=== PATIENT | male | born 1965 | race Two or more races ===

== ENCOUNTER 2017-05-17 14:33 | Emergency (ER) | payer MEDICAID ==
--- NOTE | 2017-05-17 16:00 | ED Physician Chart ---
ED Chief Complaint/HPI - Patient Information Date Seen:: 05/17/17 Time Seen:: 15:45 Chief Complaint:: bleeding left eye History of Present Illness:: Patient awoke this morning with bleeding lateral to the cornea of the left eye. Patient denies trauma. Allergies:: Allergies Allergy/AdvReac Type Severity Reaction Status Date / Time MDX No Known Allergies - Nka Allergy Verified 05/17/17 15:49 [No Known Allergies - Nka] Vitals:: Vital Signs - 8 hr 05/17/17 15:35 Temp 96 F HR 83 RR 16 BP 115/81 O2 Sat % 97 Historian:: Patient Review:: Nurse's Note Reviewed ED Review of Systems - Review of Systems General/Constitutional: No fever, No chills Skin: No skin lesions Head: No headache Eyes: Other (see history and physical) ENT: No earache, No nasal drainage, No sore throat Neck: No neck pain, No swelling Cardio Vascular: No chest pain, No palpitations Pulmonary: No SOB GI: No nausea, No vomiting, No diarrhea G/U: No dysuria Musculoskeletal: No bone or joint pain, No back pain, No muscle pain Psychiatric: No prior psych history Hematopoietic: No bruising Allergic/Immuno: No urticaria Neurological: No syncope, No focal symptoms, No weakness ED Past Medical History - Past Medical History Past Medical History: HTN, Thyroid disorder, Other Family History: HTN Social History: Non Smoker, No Alcohol Surgical History: Cholecystectomy, other (possible cholecystectomy: Patient doesn't remember; he has surgery near his liver; bilateral renal calculi) Medication: Reviewed ED Assessment - Assessment General Assessment: The patient he has a benign condition and no treatment is indicated; he was told the blood will absorb. ED Septic Shock - . Is Septic Shock (SBP<90, OR Lactate>4 mmol\L) present?: No - <6hrs of presentation: Vital Signs: Vital Signs - 8 hr 05/17/17 15:35 Temp 96 F HR 83 RR 16 BP 115/81 O2 Sat % 97 ED Reassessment (Disposition) - Reassessment Reassessment Condition:: Unchanged - Diagnosis Diagnosis:: subconjunctival hemorrhage left eye - Aftercare/Follow up Instructions Aftercare/Follow-Up Instructions:: Refer to Discharge Instructions - Patient Disposition Discharge/Transfer:: Home Condition at Disposition:: Stable, Unchanged
== END 2017-05-17 17:00 | disposition home or self-care (01) ==
LOC: ER 14:33
DX: H11.32 Conjunctival hemorrhage, left eye (principal); I10 Essential (primary) hypertension; E07.9 Disorder of thyroid, unspecified; Z90.49 Acquired absence of other specified parts of digestive tract
CPT/HCPCS: Z7502